=== PATIENT | male | born 1950 | race Caucasian/White ===

== ENCOUNTER 2019-11-12 08:30 | Outpatient (RCR) | payer MEDICARE, SELFPAY ==
--- NOTE | 2019-10-24 16:23 | ST.OPIE ---
Visit Care Team Role Provider Type Darian Hodgson MD Family Provider Non-Staff Primary Care Provider Specialty: Family Practice Address: [address] [place] [address], [id number] Email: Armin Liu MD Attending Provider Physician Referring Provider Specialty: Ear, Nose, Throat Address: [address] [place] [address], [id number] Email: [email or web address] Speech-Language Pathology Initial Evaluation [employer] Clinical Swallow Evaluation Start: 10/23/19 09:29 Freq: Status: Active Protocol: Document 10/23/19 09:30 TACOS (Rec: 10/23/19 10:27 TACOS [email or web address]) Clinical Swallow Evaluation Session Time Visit Start Time 09:30 Visit Stop Time 10:30 Total Visit Minutes 60 Visit Information Visit Number Initial Evaluation Plan of Care Dates 10/23/19 - 01/16/20 Insurance Information Medicare Referral Referring Physician Dr. Armin Liu Reason for Referral Dysphagia Setting Assessment Location Outpatient Care Visit Type Note Type Initial Evaluation Next Note Type Next Note Type Treatment Note Patient Information Identification Type Name,ID Card History The pt is a 69-yr-old male with c/o intermittent choking with swallowing (solids, liquids and saliva), which has been increasing recently. Coughing becomes violent with solids that are dry and crumbly. Onset was about 10 yrs ago and was at that time treated with medication that appeared to help. Pt does not recall the medication and stopped taking it within a year. When questioned, he believed there was some discussion of acid reflux at that time, but does not feel he has GERD now. The pt had MBSS done at [facility] which showed normal swallow function. He followed up with Dr. Liu who is requesting a second opinion. Subjective Observations The pt arrived on time and provided case history. Phone message was left with [facility] Medical Records requesting a copy of the MBSS report. Evaluation Liquids Trialed Thin Solids Trialed Puree,Dysphagia Mechanical, Mechanical Soft,Regular Administration Type Cup Single Sip,Controlled Cup Sip,Cup Consecutive Sips,Self- Feeding Oral Impairment Within Normal Limits Oral Strategies Upright at 90 degrees Oral Phase Comments Oral Peripheral Exam: Symmetrical features WNL of strength, coordination and ROM . Pt has natural dentition in good condition. Hyolaryngeal elevation/excursion mildly reduced via palpation. Soft palate elevated upon phonation . Redness at soft palate was observed. The pt denied pain at the site but stated that Dr Melissa Liu had observed the same . Oral Phase: WNL. Good oral acceptance and containment. Bolus formation and a/p propulsion appear normal, and swallow trigger was timely. No abnormal oral residue or pocketing observed. Pharyngeal Impairment Mildly Impaired Pharyngeal Strategies Sitting Upright (90 deg),Small Bites and Sips Pharyngeal Phase Comments The pt exhibited throat clearing x2 and mildly wet vocal quality x1, which he self-managed with throat clearing + swallow. No other overt s/sx of aspiration were observed. The pt had no complaints of discomfort or sticking sensation. The pt completed the EAT-10 questionnaire, scoring 4 pts ( mild impairment) Discussed GERD/LPR with the pt with education provided orally and in writing. Suspect the medication he was on 10 yrs ago which was effective in reducing his symptoms may have been medication for acid reflux. Educated the pt on potential effects of LPR on swallow function and/or irritation of tissue in laryngopharyneal areas. The pt was receptive and open to recommended diet/lifestyle modifications as a trial to see if symptoms reduce. Education and training was also provided RE exercises to improve swallow function, including education on normal vs abnormal swallow function via animated demonstrations. The pt verbalized understanding and returned demonstration of all exercises . Findings Dysphagia Type Mild pharyngeal dysphagia Rehabilitation Potential Excellent Impressions The pt presents with mild pharyngeal dysphagia characterized by occasional throat clearing and wet vocal quality after swallow. He also appears to have reduced hyolaryngeal elevation and anterior excursion, implying incomplete closure of the laryngeal vestibule with swallow. Re-evaluation via Modified Barium Swallow Study is recommended for more thorough assessment of swallow function and safety and to guide POC. LPR/GERD is highly suspected as well, given evidence and report of redness of oral and pharyngeal tissue, the pt's complaints of frequent coughing, and history of symptoms resolving with medication. GI referral may be warranted. In the meantime, the pt was agreeable to a trial of diet and lifestyle modifications recommended for LPR/GERD to see if symptoms dissipate. Diet Recommendations Liquids Order Thin Diet Order Regular Medication Recommendations As Tolerated Aspiration Precautions Recommended Precautions Upright at 90 Degrees,Small Bites/Sips Additional Precautions Minimize distractions during oral intake. Treatment Plan Placement Recommendations after Home Discharge Appropriate for Therapy Yes Therapy Recommendations MBSS for evaluation of aspiration risk and to guide POC. Exercises to increase strength , coordination and ROM of swallow mechanism and improve safety and comfort with oral intake. Ongoing education of LPR/GERD with GI consultation if warranted. Dysphagia Goals 1. The pt will participate in MBSS evaluation of swallow function/safety to assess aspiration risk and guide POC. 2. The pt will independently perform exercises to improve swallow function/safety. 3. The pt will tolerate regular diet and thin liquids WNL. [employer] Follow Up MBSS with f/u after
--- NOTE | 2019-11-12 08:58 | ST.IPDYTX ---
Visit Care Team Role Provider Type Darian Hodgson MD Family Provider Non-Staff Primary Care Provider Specialty: Family Practice Address: [address] [place] [address], [address] Email: Armin Liu MD Attending Provider Physician Referring Provider Specialty: Ear, Nose, Throat Address: [address] [place] [address], [id number] Email: [email or web address] BALL MAKER Dysphagia Treatment BALL MAKER Dysphagia Treatment Start: 10/23/19 09:29 Freq: Status: Active Protocol: Document 11/12/19 08:45 TACOS (Rec: 11/12/19 08:57 TACOS [email or web address]) Dysphagia Treatment Session Time Visit Start Time 08:30 Visit Stop Time 08:45 Total Visit Minutes 15 Visit Information Visit Number 1 Setting Assessment Location Outpatient Care Visit Type Note Type Discharge Summary Next Note Type Next Note Type Treatment Note Patient Information Identification Type Name,ID Card Subjective Observations Thet pt arrived on time. Stated he has been following GERD/LPR diet modifications, has been taking nasal steroids and performing regular nasal flushing. He has performed swallow exercises when I remember to and has experienced no swallow difficulties or coughing episodes over the last 3 wks. He expressed gratitude and asked to be discharged from skilled services. Treatment Liquids Trialed Thin Solids Trialed Mechanical Soft,Regular Administration Type Cup Single Sip,Cup Consecutive Sips,Self-Feeding Oral Strategies Upright at 90 degrees Pharyngeal Strategies Small Bites and Sips Additional Dysphagia Treatment Chin tuck with water Strategies Treatment Activities Consulted with pt on progress and HEP. Assessed swallow safety with mixed/mechanical soft and regular textures and thin liquid from cup. The pt independently employed chin tuck x1 with consumption of liquid; additional swallows without chin tuck. No overt s/ sx of aspiration were observed . The pt had no complaints of sticking sensation or discomfort. Skilled feedback provided, including encouragement to continue swallow exercises to promote long-term strength of swallow mechanism. He was invited to contact his doctor to return to dysphagia therapy if symptoms return. He verbalized understanding and agreement. Assessment Patient Response to Treatment Excellent Rehab Potential Excellent Assessment of Improvement No overt s/sx of aspiration were observed with therapeutic trials, and the pt has experienced normal swallow safety with all textures and thin liquids over the past 3 wks. He appears to have benefited greatly from recommended GERD/LPR diet and lifestyle modifications, as well as from reduced nasal drip. Suspect GERD/LPR was the primary impact on the pt's swallow safety. MBS is not warranted, given this progress . The pt will be discharged from skilled intervention. Diet Recommendations Recommendations Continue Current Diet Liquids Order Thin Diet Order Regular Medication Recommendations As Tolerated Aspiration Precautions Recommended Precautions Upright at 90 Degrees,Small Bites/Sips Additional Precautions General aspiration precautions . Chin tuck as needed. Treatment Plan Placement Recommendation after Discharge Home Appropriate for Continued Therapy No Dysphagia Goals 1. The pt will participate in MBSS evaluation of swallow function/safety to assess aspiration risk and guide POC. NO LONGER WARRANTED. 2. The pt will independently perform exercises to improve swallow function/safety. GOAL MET 3. The pt will tolerate regular diet and thin liquids WNL. GOAL MET Follow Up Plan Discharge from Speech Therapy.
== END 2019-11-12 12:06 | disposition home or self-care (01) ==
LOC: SP 08:30
PROVIDERS: Family Provider Family Medicine; PCP Family Medicine; Referring Provider Otolaryngology; Visit Provider Otolaryngology
DX: R13.19 Other dysphagia (principal)
CPT/HCPCS: 92526; 92610

== ENCOUNTER → 2020-06-19 07:11 | Outpatient (CLI) | payer MEDICARE, SELFPAY ==
--- NOTE | 2020-06-19 | DI.MRI.S_ITS ---
PROCEDURE: MR THORACIC SPINE WO CON INDICATIONS: Other nonspecific abnormal finding of lung field TECHNIQUE: Noncontrast sagittal T1 spine echo and T2 fast spin echo, sagittal STIR, axial T1 and T2 fast spin echo through the thoracic spine. COMPARISON: [facility], JADE, CT THORAX WITH CONTRAST, 10/17/2008, 8:20. [facility], JADE, MRI T-SPINE W/O CONTRAST, 10/06/2008, 8:07. FINDINGS: Image quality: Excellent. Alignment and Curvature: There is normal bony alignment. Bone Marrow: No definite acute vertebral body compression fracture. Multilevel degenerative endplate sclerosis and spurring. Diffuse facet arthropathy. Heterogeneous marrow signal changes and mild height loss of the T11 vertebral body appear grossly unchanged since 10/06/08 .No associated acute marrow edema. There is mild canal narrowing at this level which appears unchanged Spinal Cord: Visualized spinal cord is normal in size and signal. Left-sided parapelvic cysts. Paraspinous Soft Tissues: No paravertebral masses. At the T10-T11 level, there is ngpc-[id number] right foraminal narrowing. There is severe left foraminal stenosis with nerve root compression. IMPRESSION: Grossly unchanged appearance of the T11 vertebral body since 10/06/08. 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 This appears minimally progressed since the prior study. Ttlj-an-epwrzxjz right T10-T11 foraminal narrowing. This appears mildly progressed. Dictated by: Modesto Lu M.D. on 06/23/2020 at 16:10 Approved by: Modesto Lu M.D. on 06/23/2020 at 16:21
== END ==
PROVIDERS: Family Provider Family Medicine; PCP Family Medicine; Referring Provider Family Medicine; Visit Provider Family Medicine
DX: R91.8 Other nonspecific abnormal finding of lung field (principal); M48.04 Spinal stenosis, thoracic region; M47.814 Spondylosis without myelopathy or radiculopathy, thoracic region
CPT/HCPCS: 72146

== ENCOUNTER 2022-05-25 07:31 | Day surgery (SDC) | payer MEDICARE, SELFPAY ==
--- NOTE | 2022-05-25 | PATH_ITS ---
[facility] Accession Number: [id number] No. of containers..01 Tissue . 01 Material submitted: . stomach - STOMACH BIOPSIES . 01 Diagnosis: Stomach, Biopsies: Gastric antral and body mucosa with mild chronic inflammation. Negative for Helicobacter organisms by immunohistochemistry. Negative for intestinal metaplasia. Negative for dysplasia or malignancy. MRV 06/01/2022 1536 Local . 01 Electronically signed: . Jesus Clifford MD, PhD, Pathologist NPI- [id number] . 01 Gross description: . STOMACH BIOPSIES: Received in formalin are 2 fragment(s) of spann, soft tissue measuring 0.1 x 0.1 x 0.1 cm to 0.3 x 0.2 x 0.2 cm submitted entirely in 1 cassette(s) /ANSON 05/26/2022 1942 Local . 01 Microscopic: . An immunohistochemical stain was performed to evaluate for Helicobacter organisms and is negative. The control stain showed appropriate reactivity. . * This test was developed and its performance characteristics determined by [facility]. It has not been cleared or approved by the U.S. Food and Drug Administration. The FDA has determined that such clearance or approval is not necessary. This test is used for clinical purposes. It should not be regarded as investigational or for research. . 01 Pathologist provided ICD-10: K29.70 . 01 CPT . 986758, Q10198 Specimen Comment: A courtesy copy of this report has been sent to [phone] Performed at: 01 [facility] [address] [place] [address], [place], [place] [id number] MD Hai Posada MD Phone: [phone]
[2022-05-25 07:57] VITALS: BP 172/99; PULSE 97; RESP 18; TEMP 36.4; O2SAT 96; BMI 33.3
[2022-05-25] MEDS: LACTATED RINGERS 1,000 ML 42 ML IV (08:16)
--- NOTE | 2022-05-25 08:49 | PM.PREOP ---
Pre-operative Note COVID-19 COVID-19 status: Negative Interval Note History & Physical reviewed/Exam performed by Physician: Yes Changes to H&P: No ASA Class (for procedural sedation): II
--- NOTE | 2022-05-25 08:50 | PM.OP.EGD ---
Operative Date/Time/Diagnoses Date of procedure: 05/25/22 Pre-op diagnosis: See indication and findings Procedure & Clinicians Study performed: EGD Indications: Abdominal pain unresponsive to medications with dysphagia. Surgeon: Gris Baldwin Procedure Notes Procedure in detail: After informed consent was obtained the patient was placed in left lateral decubitus position. The video upper scope was placed into the oropharynx and with the patient's help swelled into the esophagus. The esophagus stomach and duodenum were carefully examined. On withdrawal retroflexed view the GE junction was performed. The scope was removed. The patient tolerated the procedure well. Blood loss none Complications none Sedation propofol Findings 1. One small erosion at the end of the esophagus for LA classification a esophagitis. No evidence of stenosis. 2. Cbfz-dg-hnkbxuuu streaky erythema in the antrum. Biopsies taken to rule out Helicobacter 3. Normal duodenal bulb and sweep I suspect that Marshall has GE reflux causing dysmotility and his dysphagia. His discomfort may be from gastritis. We will increase his anti peptic regimen to Nexium 40 mg b.i.d. for the next 2-4 weeks and he will give us call let us know his how he is doing.
[2022-05-25 09:07] VITALS: BP 138/86; PULSE 85; RESP 21; TEMP 37.1; O2SAT 99
[2022-05-25 09:12] VITALS: BP 136/82; PULSE 90; RESP 22; O2SAT 98
[2022-05-25 09:17] VITALS: BP 149/85; PULSE 88; RESP 19; O2SAT 98
[2022-05-25 09:22] VITALS: BP 133/91; PULSE 84; RESP 17; TEMP 36.5; O2SAT 98
== END 2022-05-25 10:37 | disposition home or self-care (01) ==
PROVIDERS: Family Provider Family Medicine; PCP Internal Medicine; Referring Provider Internal Medicine Gastroenterology; Visit Provider Internal Medicine Gastroenterology
PROC: 0DJ08ZZ Inspection of Upper Intestinal Tract, Via Natural or Artificial Opening Endoscopic (ICD-10-PCS; CPT 43235; principal; 2022-05-25 08:30)
DX: K29.50 Unspecified chronic gastritis without bleeding (principal); R13.10 Dysphagia, unspecified; K20.80 Other esophagitis without bleeding
CPT/HCPCS: 43239; J2704

== ENCOUNTER → 2023-05-29 15:09 | Outpatient (CLI) | payer MEDICARE, SELFPAY ==
--- NOTE | 2023-05-31 18:00 | DI.NM.S_ITS ---
DATE OF SERVICE: 05/29/2023 PROCEDURE PERFORMED: Pharmacologic vasodilator stress and rest myocardial perfusion imaging with gating to assess ejection fraction and regional wall motion. ORDERING PROVIDER: Aba Sheikh MD INDICATIONS: The patient is a 73-year-old male with exertional dyspnea and edema. CARDIAC STRESS: Per protocol, 0.4 mg of regadenoson was infused with a normal hemodynamic response without angina but moderate dyspnea. His resting ECG shows sinus rhythm with fairly low voltage QRS. He had frequent PVCs, but no complex ectopy. With stress, there were no significant ST-segment shifts or arrhythmias. Per protocol, 25.1 mCi of technetium-99m Myoview was injected and he was imaged 15 minutes later using a gated SPECT acquisition protocol. Two days prior, while at rest, he had been injected with 25.6 mCi of technetium- 99m Myoview and was imaged 15 minutes later, again using a gated SPECT acquisition protocol. FINDINGS: 1. Raw data: There is fairly good myocardial tracer uptake. The lung/heart ratio is normal at 0.37 with a normal TID ratio of 0.96. 2. Quantitated gated SPECT: Post-stress ejection fraction is 74% without any focal wall motion abnormality. The end-diastolic volume is mildly increased at 140 ml. Resting gating was unable to be achieved because of his PVCs. 3. Myocardial perfusion imaging: Post-stress supine images shows a fairly normal myocardial perfusion pattern with a mild defect in the inferior wall in a pattern consistent with diaphragmatic attenuation, supported by its resolution on the prone images revealing a more homogeneous perfusion pattern. The resting images show an identical perfusion pattern to that of the post-stress supine images without any improvement in the inferior defect. IMPRESSION: 1. Probable normal myocardial perfusion study. 2. Subtle, fixed inferior perfusion defect that resolves on prone imaging, most consistent with diaphragmatic attenuation artifact. There is no compelling evidence for any myocardial ischemia or previous myocardial infarction. 3. Normal left ventricular systolic function without any focal wall motion abnormality. Left ventricular volumes appear to be mildly increased. 4. No angina or ECG evidence of ischemia with pharmacologic vasodilator stress. He had fairly frequent PVCs at rest, but no complex ectopy seen throughout the study. Marshall Billings - // doc#: [id number]/job#: [id number] dd: 05/31/2023 16:08:00 dt: 05/31/2023 17:43:00 DICTATING MD/COPIES TO: Alfonso Mike; Aba Sheikh M.D. COPIES MNE: CHADD;
== END ==
LOC: NUCM 15:11
PROVIDERS: Family Provider Family Medicine; PCP Internal Medicine; Referring Provider Internal Medicine; Visit Provider Internal Medicine
DX: R06.02 Shortness of breath (principal); R06.00 Dyspnea, unspecified; R60.9 Edema, unspecified
CPT/HCPCS: 78452; 93017; A9502; J2785

== ENCOUNTER → 2023-06-16 14:36 | Outpatient (CLI) | payer MEDICARE, SELFPAY ==
--- NOTE | 2023-06-16 14:37 | DI.ECHO.S_ITS ---
[facility] +---------+ : : [address] : [place], [place] : : : : [id number] : : : : Phone: [phone]---------+ Echocardiogram Report + + :Name: RICARDA SANTOS Study Date: 06/16/2023 Height: 74 in : :[facility] ReadingLocation: Weight: 271 lb : : Gender: Male BSA: 2.5 m2 : :: 1950 Age: 73 yrs BP: 148/90 mmHg: :Reason For Study: DYSPNEA : :Ordering Physician: BRITTANY, : :CONTRERAS Performed By: Sergio Andrews : :Referring: CONTRERAS LEE : + + Interpretation Summary 1) Mildly increased left ventricular thickness (concentric) with normal size, normal wall motion, and normal systolic function (EF 60-65%). 2) Upper normal right ventricular size with normal function. 3) No significant valvular abnormalities. 4) No prior Echo available for comparison. Procedure: A two-dimensional transthoracic echocardiogram with color flow and Doppler was performed. The study quality was technically difficult. There is no prior echocardiogram noted for this patient. The patient was in normal sinus rhythm during the exam. The heart rate ranged between 78-98 bpm during the study. Left Ventricle: The left ventricle is normal in size. There is mild concentric left ventricular hypertrophy. The ejection fraction is estimated to be 60-65%. Left ventricular systolic function appears normal without focal wall motion abnormalities. Right Ventricle: The right ventricle is mildly dilated. The right ventricular systolic function is normal. Atria: The left atrial size is normal. The right atrium is mildly dilated. The interatrial septum grossly appears intact with no obvious evidence for an atrial septal defect. Mitral Valve: The mitral valve is normal in structure and function. There is no mitral valve stenosis. There is no mitral regurgitation noted. Aortic Valve: The aortic valve is grossly normal. The aortic valve is mildly calcified. There is no aortic valve stenosis. No aortic regurgitation is present. Tricuspid Valve: The tricuspid valve is normal in structure and function. There is no tricuspid stenosis. The right ventricular systolic pressure is estimated to be at least 23 mmHg based on an estimated right atrial pressure of 3 mm Hg. There is mild tricuspid regurgitation. Pulmonic Valve: The pulmonic valve is not well visualized. There is no pulmonic valvular stenosis. There is no pulmonic valvular regurgitation. Great Vessels: The aortic root is normal size. The dimensions of the ascending aorta are normal. The IVC is of normal diameter and collapses greater than 50% with a sniff. This suggests a low right atrial pressure of 3 mm Hg. Pericardium/ Pleura There is no pericardial effusion. There is no pleural effusion. MMode/2D Measurements & Calculations LVIDd: 4.8 cm LVOT diam: 2.2 cm LVIDs: 3.1 cm Ao root diam: 3.5 cm FS: 35.8 % asc Aorta Diam: 3.6 cm IVSd: 1.2 cm Ao Arch Diam (Prox Trans): 3.0 cm LVPWd: 1.2 cm LV dai. diameter/BSA (cm/m^2): 1.9 LV sys. diameter/BSA (cm/m^2): 1.2 LA A2 area: 16.0 cm2 RA long axis: 5.3 cm LA A4 area: 12.3 cm2 RA area: 21.1 cm2 LA length (vol): 4.4 cm RA vol: 71.0 ml LA vol: 37.9 ml RA : 28.7 ml/m2 LA vol index: 15.3 ml/m2 IVC diam: 1.5 cm RVD1 (basal): 4.5 cm RVD2 (mid): 4.0 cm TAPSE: 2.1 cm Doppler Measurements & Calculations Ao V2 max: 190.4 cm/sec LVOT Max Yuli: 133.2 cm/sec Ao V2 mean: 119.5 cm/sec LV V1 max P.1 mmHg Ao max P.6 mmHg LV V1 VTI: 24.2 cm Ao mean P.9 mmHg MATY(I,D): 2.6 cm2 Ao V2 VTI: 33.5 cm MATY(V,D): 2.5 cm2 sev ratio: 0.72 MATY indexed to BSA (cm^2/m^2): 1.1 MV E max yuli: 70.1 cm/sec TR max yuli: 227.0 cm/sec MV A max yuli: 88.7 cm/sec TR max P.6 mmHg MV E/A: 0.79 PA V2 max: 86.6 cm/sec Med Peak E' Yuli: 6.4 cm/sec PA V2 mean: 64.5 cm/sec E/E' med: 10.9 PA mean P.8 mmHg Lat Peak E' Yuli: 7.9 cm/sec PA pr(Accel): 37.9 mmHg E/E' lat: 8.9 E/e' average: 9.9 MV dec time: 0.24 sec SV(LVOT): 88.0 ml Reading Physician:05:12 AM
== END ==
PROVIDERS: Family Provider Family Medicine; PCP Internal Medicine; Referring Provider Internal Medicine Cardiovascular Disease; Visit Provider Internal Medicine Cardiovascular Disease
DX: I07.1 Rheumatic tricuspid insufficiency (principal); R06.09 Other forms of dyspnea
CPT/HCPCS: 93306

== ENCOUNTER 2023-08-21 15:14 | Emergency (ER) | payer MEDICARE, SELFPAY ==
[2023-08-21] VITALS (14 sets, daily range): BP systolic 138–177; BP diastolic 74–99; PULSE 90–141; RESP 16–38; TEMP 36.6; O2SAT 95–98; BMI 34.7
[2023-08-21] MEDS: ONDANSETRON 4 MG/2 ML INJ IV (15:37)
--- NOTE | 2023-08-21 15:37 | ED.ARRPALP ---
HPI - Arrhythmia/Palpitations General Chief Complaint: Arrhythmia/Palpitations Stated Complaint: IRR EKG, Time Seen by Provider: 08/21/23 15:36 Source: patient Mode of arrival: Ambulatory History of Present Illness HPI narrative: 73-year-old gentleman with a history of hypertension hyperlipidemia who presents complaining gas and bloating worse for the last number of months. This last week he has had increased bloating, nausea with an episode of emesis on Monday as well as Monday. He notes that he will have significant fatigue postprandially he will get jittery and then dizzy. Apparently was seen in clinic and they noted that he had an irregular heart rhythm and sent him to the ER for further evaluation. He notes that he lives alone, he has a next door neighbor and together they share a beer each night. He has not complaining of constipation or diarrhea. Has not noticed any black stools or bloody emesis. He has not complaining of headache. He is not noticing any cardiac arrhythmia and does not complain of dyspnea nor orthopnea. No lower extremity edema Related Data Home Medications Medication Instructions Recorded Confirmed atorvastatin 20 mg tablet 20 mg PO DAILY 05/25/22 05/25/22 fenofibrate 160 mg tablet 160 mg PO DAILY 05/25/22 05/25/22 irbesartan 300 1 tab PO DAILY 05/25/22 05/25/22 mg-hydrochlorothiazide 12.5 mg tablet Allergies Allergy/AdvReac Type Severity Reaction Status Date / Time penicillin V Allergy Verified 08/21/23 15:27 Penicillins Allergy Verified 08/21/23 15:27 Review of Systems Review of Systems Narrative: Pertinent positive and negative findings as per HPI Patient History Medical History (Updated 08/21/23 @ 17:54 by Rylee Camacho MD) Hyperlipidemia Hypertension Social History household members: spouse Smoking Status: Never smoker Smoking Status: Never smoker alcohol intake frequency: 0-2 drinks per day Substance Use Type: does not use Exam Initial Vital Signs Initial Vital Signs: Vital Signs Pulse Rate 101 H 08/21/23 15:22 Respiratory Rate 38 H 08/21/23 15:22 Pulse Oximetry 97 08/21/23 15:22 General: no acute distress. Able to participate with history and exam. HEENT: Moist mucous membranes, normal sclera with reactive pupils, Neck: No JVD, supple Respiratory: Lungs are clear to auscultation, no wheezing no rales no rhonchi. Full and symmetrical air movement Cardiac: Regular rate and rhythm no murmurs no bruits Abdomen: Obese, Soft, nontender, good bowel tones, no flank pain Skin: Warm and dry, no rashes Neurologic: Grossly neurologically intact with no obvious asymmetries or abnormalities Extremities: No trauma, well perfused, no lower extremity edema Psych: Cooperative, appropriate insight and affect Course Orders Ordered: ED Orders 08/21/23 15:27 BNP [NT-proBNP (BNP-Adult 18+)] Stat Complete Blood Count AUTO DIFF Stat Comprehensive Metabolic Panel Stat Lipase Stat TSH w/ Reflex to FT4 Stat Troponin & CK Cardiac Panel Stat 08/21/23 15:29 EKG-12 Lead Stat 08/21/23 15:38 XR chest 1V Stat 08/21/23 16:43 CT abdomen pelvis w con Stat Ondansetron HCl (Ondansetron 4 Mg Odt) 4 mg PO NOW PRN PRN Reason: Nausea And Vomiting Ondansetron HCl (Ondansetron 4 Mg/2 Ml Inj) 4 mg IV NOW PRN PRN Reason: Nausea And Vomiting Last Admin: 08/21/23 15:37 Dose: 4 mg Documented By: ASIA Vital Signs Vital signs: Vital Signs - 8 hr 08/21/23 15:22 08/21/23 15:23 08/21/23 15:23 Temperature Pulse Rate 101 H 107 H Respiratory Rate 38 H 29 H Blood Pressure 177/89 H Pulse Oximetry 97 97 Oxygen Delivery Method 08/21/23 15:24 08/21/23 15:30 08/21/23 15:31 Temperature 98 F Pulse Rate 101 H 101 H Respiratory Rate 16 32 H Blood Pressure 177/89 H 157/74 H Pulse Oximetry 97 97 Oxygen Delivery Method Room Air 08/21/23 15:31 08/21/23 16:00 08/21/23 16:01 Temperature Pulse Rate 101 H 98 H Respiratory Rate 27 H 32 H Blood Pressure 157/99 H Pulse Oximetry 98 96 Oxygen Delivery Method 08/21/23 16:01 08/21/23 16:30 08/21/23 16:31 Temperature Pulse Rate 111 H 141 H Respiratory Rate 29 H 24 Blood Pressure 173/83 H Pulse Oximetry 98 Oxygen Delivery Method 08/21/23 16:31 08/21/23 17:00 08/21/23 17:05 Temperature Pulse Rate 100 H 99 H 96 H Respiratory Rate 23 25 H 23 Blood Pressure Pulse Oximetry 97 97 Oxygen Delivery Method 08/21/23 17:05 08/21/23 17:30 08/21/23 17:31 Temperature Pulse Rate 96 H Respiratory Rate 22 Blood Pressure 154/83 H 138/76 Pulse Oximetry 95 Oxygen Delivery Method 08/21/23 17:31 Temperature Pulse Rate 94 H Respiratory Rate 28 H Blood Pressure Pulse Oximetry 98 Oxygen Delivery Method MDM - Arrhythmia/Palpitations Lab Data 08/21/23 15:27 08/21/23 15:27 Labs: Lab Results 08/21/23 Range/Units 15:27 WBC 8.7 (4.5-11.0) X10^3/uL RBC 4.65 (4.5-5.9) X10^6/uL Hgb 14.6 (13.5-17.5) g/dL Hct 42.6 (41-53) % MCV 91.7 (80-100) fL MCH 31.3 (26-34) PG MCHC 34.2 (30-36) % RDW 14.5 (11.6-14.8) % Plt Count 206 (150-400) X10^3/uL Neut % (Auto) 71.8 (50-75) % Lymph % (Auto) 18.6 L (25-40) % [place] % (Auto) 7.6 (3-14) % Eos % (Auto) 1.2 L (2-4) % Baso % (Auto) 0.8 (0-2) % Neut # (Auto) 6300 (3830-9278) /uL Lymph # (Auto) 1600 (4356-8323) /uL [place] # (Auto) 700 (0-900) /uL Eos # (Auto) 100 (0-450) /uL Baso # (Auto) 100 (0-100) /uL Sodium 138 (137-145) mmol/L Potassium 4.3 (3.4-5.1) mmol/L Chloride 104 (98-107) mmol/L Carbon Dioxide 27 (22-32) mmol/L BUN 22 H (9-20) mg/dL Creatinine 0.86 (0.66-1.25) mg/dL Estimated GFR > 60 (>60) mL/min BUN/Creatinine Ratio 25.6 H (6-22) Glucose 111 H (80-110) mg/dL Calcium 9.3 (8.4-10.2) mg/dL Total Bilirubin 1.0 (0.2-1.3) mg/dL AST 43 (17-59) IU/L ALT 46 (<50) IU/L Alkaline Phosphatase 99 (38-126) U/L Total Creatine Kinase 54 L (55-170) U/L Troponin I < 0.012 (0.01-0.034) ng/mL NT-Pro-B Natriuret Pep 84 (<125) pg/mL Total Protein 7.2 (6.3-8.2) g/dL Albumin 4.3 (3.5-5.0) g/dL Globulin 2.9 (1.7-4.1) g/dL Albumin/Globulin Ratio 1.5 (1.0-2.8) Lipase 91 (23-300) U/L TSH 1.05 (0.47-4.68) uIU/mL Urine Dip Bedside Urine Glucose Negative Bedside Urine Bilirubin - Negative Bedside Urine Ketone - Negative Urine Specific [place] 1.020 Bedside Urine Occult Blood - Negative Bedside Urine pH 6.0 Bedside Urine Protein - Negative Bedside Urine Urobilinogen - Negative Bedside Urine Nitrite - Negative Bedside Urine Leukocytes - Negative Esterase Imaging Data CT scan - abdomen/pelvis: Radiologist's Impresson: PROCEDURE: CT ABDOMEN PELVIS W CON INDICATIONS: abdominal pain and bloating TECHNIQUE: After the administration of intravenous contrast, axial sections acquired from the lung bases to the pubic symphysis. Coronal and sagittal reformats were performed. For radiation dose reduction, the following was used: automated exposure control, adjustment of mA and/or kV according to patient size. COMPARISON: [facility], RG, CT THORAX WITH CONTRAST, 10/17/2008, 8:20. FINDINGS: Image quality: Diagnostic. Lower Chest: No significant findings. ABDOMEN: Liver: No solid mass. Liver measures 21.0 cm with steatosis. Gallbladder: No radiopaque gallstones or wall thickening. Biliary ducts: No biliary dilation. Pancreas: No ductal dilation. Spleen: Size is within normal limits. Adrenal Glands: Bilateral adrenal nodules measuring 2.3 x 1.4 cm on the left and 1.6 x 2.4 cm on the right. This is compared to 1.7 x 1.1 cm and 1.3 x 2.0 cm on the left and right respectively in 2009. Kidneys and Ureters: Bilateral renal parapelvic cysts. No solid mass. No complex renal cystic lesion which requires follow up. Stomach and Bowel: Mild scattered colonic diverticula without associated inflammatory change. Minimal appearance of scattered small bowel loops overall nonspecific. Peritoneum: No abnormal intraperitoneal fluid. No free air. Ventral Wall: No significant ventral hernia. Abdominal Nodes: No retroperitoneal or mesenteric adenopathy by size criteria. Vessels: Aorta and inferior vena cava are normal in size. PELVIS: Pelvic Organs: Unremarkable. Bladder: No bladder wall thickening, accounting for underdistention. Pelvic Nodes: No enlarged lymph nodes. Miscellaneous: Bilateral fat containing inguinal hernias are seen. Bones: No aggressive osseous abnormality. IMPRESSION: Mildly prominent scattered fluid-filled loops of small bowel overall nonspecific. This could represent ileus. Diverticulosis. Bilateral adrenal nodules with minimal interval growth since 2008 felt to be reflective of benign adenomas. Hepatomegaly with steatosis. Dictated by: Lizbeth Haynes M.D. on 08/21/2023 at 17:13 MDM Narrative Medical decision making narrative: CC: Increasing abdominal bloating and pain with postprandial fatigue vomiting yesterday and 72 hours ago as the impetus to come to the emergency department Complicating co-morbidities: Hypertension, hyperlipidemia Data collected from: patient Social determinants of health that may influence the patients condition: Patient lives alone Medical records reviewed: Gastroenterology notes from May of 2022 indicate that he has been having abdominal pain for at least 6 months prior to that.. He has a history of COPD, coronary artery disease and history of reflux with dysphagia. 05/23/2022 had an EGD with a small erosion at the end of the esophagus no evidence of stenosis. Suspicion was for gastroesophageal reflux causing dysmotility and his dysphagia with mild gastritis Differential considered: Reflux, weight gain, ascites, pancreatic mass, cirrhosis Exam documented above, pertinent findings include: Exam is relatively benign with no significant abdominal pain on palpation. Lab Test results independently reviewed as above. Pertinent findings: CBC is unremarkable Chemistries are reassuring Troponin is undetectable Lipase is within normal limits Thyroid is appropriate Independently reviewed EKG: Underlying rhythm is sinus at a rate of 96 with frequent PACs and PVCs. Very irregular. No obvious ischemia. Imaging studies independently reviewed: CT scan shows bilateral adrenal nodules that are essentially unchanged from 2009. Scattered fluid-filled loops of bowel that are not specific. No other acute findings appreciated Discussion:Pleasant gentleman unaware of his medical history or medications. States that his abdominal pain is only a couple of months old and records indicate that it is closer to a number of years old. Lab work and CT scan are relatively unremarkable. I do not have an explanation for his perceived new symptoms. His medical record does not look like he has taking a proton pump inhibitor and GI notes indicate that has been indicated in the past. It turns out that he has been trying go low which is a GLP 1 inhibitor that likely is responsible for his constipation. He has been using Pepto-Bismol. We talked about adding milk of magnesia. In the past he has been on proton pump inhibitors to help with his reflux and has stopped those. He notes that he has been ?experimenting? with his medications recently. He sees his primary care provider on the and will review all of this with him. He is safe for discharge Discharge Plan Departure Patient Disposition: Home Clinical Impression: Abdominal pain Qualifiers: Abdominal location: generalized Qualified Code(s): R10.84 - Generalized abdominal pain Instructions: DI for Abdominal Pain-Adult Activity Restrictions/Additional Instructions: Thank you for coming in today You are right that the GoLo will cause some constipation. Adding fiber, using milk of magnesia, MiraLax, other stool softeners will all be helpful. I think that having regular bowel movements is going to be helpful in avoiding The bloating and discomfort you are experiencing Regarding the epigastric pain, with your upper endoscopies approximately 2 years ago the recommendation was to use a proton pump inhibitor such as omeprazole. You can discuss restarting a short course of this with your primary care doctor with your appointment on If you find that you are getting worse or develop any new symptoms, please feel free to return to the emergency department for further evaluation. Prescriptions: No Action atorvastatin 20 mg Tablet 20 mg PO DAILY irbesartan-hydrochlorothiazide 300-12.5 mg Tablet 1 tab PO DAILY fenofibrate 160 mg Tablet 160 mg PO DAILY Referrals: Aba Sheikh MD [Primary Care Provider] - Stand Alone Forms: Patient Portal/API
--- NOTE | 2023-08-21 15:38 | DI.RAD.S_ITS ---
PROCEDURE: XR CHEST 1V INDICATIONS: palpitations TECHNIQUE: One view of the chest was acquired. COMPARISON: None. FINDINGS: Surgical changes and devices: None. Lungs and pleura: Lungs are clear. No pleural effusions or pneumothorax. Mediastinum: Mediastinal contours appear normal. Heart size is normal. Bones and chest wall: No suspicious bony lesions. Overlying soft tissues appear unremarkable. IMPRESSION: No acute cardiopulmonary abnormality is seen. Dictated by: Jez Roca M.D. on 08/21/2023 at 16:14 Approved by: Jez Roca M.D. on 08/21/2023 at 16:14
[2023-08-21 15:42] LABS: Add Manual Diff / Slide Review NO; Basophils Absolute Auto 100 /uL (0-100); Basophils Percent Auto 0.8 % (0-2); Eosinophils Absolute Auto 100 /uL (0-450); Eosinophils Percent Auto 1.2 % (2-4); Hematocrit 42.6 % (41-53); Hemoglobin 14.6 g/dL (13.5-17.5); Lymphocytes Absolute Auto 1600 /uL (1100-4500); Lymphocytes Percent Auto 18.6 % (25-40); Mean Corpuscular HGB Conc 34.2 % (30-36); Mean Corpuscular Hemoglobin 31.3 PG (26-34); Mean Corpuscular Volume 91.7 fL (80-100); Monocytes Absolute Auto 700 /uL (0-900); Monocytes Percent Auto 7.6 % (3-14); Neutrophils Absolute Auto 6300 /uL (1500-7000); Neutrophils Percent Auto 71.8 % (50-75); Platelet Count 206 X10^3/uL (150-400); Red Blood Cell Count 4.65 X10^6/uL (4.5-5.9); Red Cell Distribution Width 14.5 % (11.6-14.8); White Blood Cell Count 8.7 X10^3/uL (4.5-11.0)
[2023-08-21 15:51] LABS: Creatine Kinase 54 U/L (55-170)
[2023-08-21 15:53] LABS: Alanine Aminotransferase 46 IU/L (<50); Albumin 4.3 g/dL (3.5-5.0); Albumin Globulin Ratio 1.5 (1.0-2.8); Alkaline Phosphatase 99 U/L (38-126); Aspartate Aminotransferase 43 IU/L (17-59); BUN Creatinine Ratio 25.6 (6-22); Blood Urea Nitrogen 22 mg/dL (9-20); Calcium 9.3 mg/dL (8.4-10.2); Carbon Dioxide 27 mmol/L (22-32); Chloride 104 mmol/L (98-107); Estimated Glomerular Filt Rate > 60 mL/min (>60); Globulin 2.9 g/dL (1.7-4.1); Glucose 111 mg/dL (80-110); HEMOLYSIS < 15 (0-50); Lipase 91 U/L (23-300); Potassium 4.3 mmol/L (3.4-5.1); Sodium 138 mmol/L (137-145); Total Protein 7.2 g/dL (6.3-8.2)
[2023-08-21 16:01] LABS: NT-proBNP (BNP-Adult 18+) 84 pg/mL (<125)
[2023-08-21 16:04] LABS: Troponin I < 0.012 ng/mL (0.01-0.034)
[2023-08-21 16:39] LABS: TSH w/ Reflex to FT4 1.05 uIU/mL (0.47-4.68)
--- NOTE | 2023-08-21 16:43 | DI.CT.S_ITS ---
PROCEDURE: CT ABDOMEN PELVIS W CON INDICATIONS: abdominal pain and bloating TECHNIQUE: After the administration of intravenous contrast, axial sections acquired from the lung bases to the pubic symphysis. Coronal and sagittal reformats were performed. For radiation dose reduction, the following was used: automated exposure control, adjustment of mA and/or kV according to patient size. COMPARISON: [facility], RG, CT THORAX WITH CONTRAST, 10/17/2008, 8:20. FINDINGS: Image quality: Diagnostic. Lower Chest: No significant findings. ABDOMEN: Liver: No solid mass. Liver measures 21.0 cm with steatosis. Gallbladder: No radiopaque gallstones or wall thickening. Biliary ducts: No biliary dilation. Pancreas: No ductal dilation. Spleen: Size is within normal limits. Adrenal Glands: Bilateral adrenal nodules measuring 2.3 x 1.4 cm on the left and 1.6 x 2.4 cm on the right. This is compared to 1.7 x 1.1 cm and 1.3 x 2.0 cm on the left and right respectively in 2008. Kidneys and Ureters: Bilateral renal parapelvic cysts. No solid mass. No complex renal cystic lesion which requires follow up. Stomach and Bowel: Mild scattered colonic diverticula without associated inflammatory change. Minimal appearance of scattered small bowel loops overall nonspecific. Peritoneum: No abnormal intraperitoneal fluid. No free air. Ventral Wall: No significant ventral hernia. Abdominal Nodes: No retroperitoneal or mesenteric adenopathy by size criteria. Vessels: Aorta and inferior vena cava are normal in size. PELVIS: Pelvic Organs: Unremarkable. Bladder: No bladder wall thickening, accounting for underdistention. Pelvic Nodes: No enlarged lymph nodes. Miscellaneous: Bilateral fat containing inguinal hernias are seen. Bones: No aggressive osseous abnormality. IMPRESSION: Mildly prominent scattered fluid-filled loops of small bowel overall nonspecific. This could represent ileus. Diverticulosis. Bilateral adrenal nodules with minimal interval growth since 2008 felt to be reflective of benign adenomas. Hepatomegaly with steatosis. Dictated by: Lizbeth Haynes M.D. on 08/21/2023 at 17:13 Approved by: Lizbeth Haynes M.D. on 08/21/2023 at 17:16
== END 2023-08-21 18:04 | disposition home or self-care (01) ==
PROVIDERS: Emergency Provider Emergency Medicine; Family Provider Family Medicine; PCP Internal Medicine
DX: R10.84 Generalized abdominal pain (principal); R14.0 Abdominal distension (gaseous); R11.2 Nausea with vomiting, unspecified
CPT/HCPCS: 36415; 71045; 74177; 80053; 81003; 82550; 83690; 83880; 84443; 84484; 85025; 93005; 96374; 99284; J2405; Q9967